=== PATIENT | female | born 1990 | race Hispanic/Latino ===

== ENCOUNTER 2019-12-31 09:37 | Day surgery (SDC) | payer MEDICAID ==
[2019-12-31] MEDS ORDERED: SODIUM CHLORIDE 0.9% 1000 ML 1,000 ML ONE (10:19)
[2019-12-31] MEDS ORDERED: SODIUM CHLORIDE 0.9% 1000 ML 1,000 ML IV SCH (11:15)
[2019-12-31] MEDS ORDERED: LIDOCAINE MPF (2%) 20 MG/1 ML VIAL 5 ML ONE (11:30)
[2019-12-31] MEDS ORDERED: INSULIN REGULAR, HUMAN 100 UNITS/1 ML ONE (11:38)
--- NOTE | 2019-12-31 11:39 | Anesthesia Day of Surgery ---
Anesthesia Day of Surgery - Day of Surgery Patient Examined: Yes Patient H&P Reviewed: Yes Patient is NPO: Yes
[2019-12-31] MEDS ORDERED: propofoL 200 MG/20 ML VIAL IV ONE ×2 (11:40→12:10)
--- NOTE | 2019-12-31 11:41 | Anesthesia Consultation ---
Anesthesia Consult and Med Hx Date of service: 12/31/19 - Airway Anesthetic Teeth Evaluation: Chipped ROM Head & Neck: Adequate Mental/Hyoid Distance: Adequate Mallampati Class: Class II Intubation Access Assessment: Good - Pre-Operative Health Status ASA Pre-Surgery Classification: ASA3 Proposed Anesthetic Plan: MAC - Pulmonary Hx Smoking: Yes Hx Sleep Apnea: No - Cardiovascular System Hx Hypertension: No - Central Nervous System Hx Psychiatric Problems: No - Gastrointestinal Hx Gastroesophageal Reflux Disease: Yes - Endocrine Hx Insulin Dependent Diabetes: Yes (FBS 316. +Neuropathy. Since 12 y/o) - Other Systems Hx Alcohol Use: No Hx Substance Use: No Hx Cancer: No
[2019-12-31] MEDS ORDERED: INSULIN REGULAR, HUMAN 100 UNITS/1 ML SUB-Q SCH (12:00)
--- NOTE | 2019-12-31 12:13 | Procedure Note ---
Date of procedure: 12/31/19 Pre-op diagnosis: Dyspepsia/ Dysphagia Procedure: EGD with Biopsy and s/p Esophageal Balloon dilation (20 mm Balloon) Anesthesia: MAC Surgeon: ORQUIDEA URIARTE Estimated blood loss: minimal Pathology: list Specimen disposition: to lab Condition: stable Disposition: same day (Treat with PPI and Reglan. Avoid aspirin ad NSAID for 4 days; otherwise resume home medication. follow up in 1 to 2 weeks ([phone]).)
--- NOTE | 2019-12-31 12:15 | Operative Report ---
PROCEDURE: Esophagogastroduodenoscopy with biopsy and balloon dilation of the esophagus. INDICATIONS: A 29-year-old white female with an underlying history of juvenile onset diabetes type 1, who has been having some dyspeptic symptoms as well as dysphagia. EGD was done to assess for the problem. The procedure was done after getting informed consent with MAC anesthesia. The procedure was done in the GI lab with assistance of the GI lab team, which included judson So and with assistance of anesthesia. Instrument was passed through the hypopharynx into the esophagus, which showed mild to moderate distal erosive esophagitis. Biopsy was done from the distal esophagus as well as from the mid esophagus to assess for eosinophilic esophagitis as well as the severity of the erosive esophagitis. There was mild benign esophageal stenosis. This was dilated at the end of the procedure with a 20 mm balloon that was maintained for a minute. The stomach showed gastritis. The pylorus was patent. The duodenum in the first and second portion appeared normal. Biopsy was done from the second part to rule out for possible celiac disease since the patient has an underlying history of type 1 diabetes mellitus. Additional biopsy was also done from the gastric antrum, gastric body and angular incisura to rule out for H. pylori and atrophic gastritis. There was evidence of some mild gastroparesis with a patent pylorus. There is minimal bleeding associated with the procedure. No complications associated with the procedure. ASSESSMENT: Dyspepsia, dysphagia, status post esophageal balloon dilation with a 20 mm balloon, rule out eosinophilic esophagitis, mild benign, mild to moderate erosive esophagitis, gastritis, mild gastroparesis, patent pylorus, rule out celiac disease. No peptic ulcer disease noted. PLAN: To have the patient avoid aspirin and aspirin-related products for the next few days. Treat the patient with PPI as well as Reglan and have the patient follow up in the office in 1-2 weeks' time. Further adjustment of the treatment will be according to the biopsy findings. JOB# [id number] MICHAEL/CHRISTIAN
[2019-12-31 12:53] VITALS: BP 119/76
--- NOTE | 2019-12-31 19:25 | Post Anesthesia Evaluation ---
- Post Anesthesia Evaluation Patient Participated: Yes Airway Patent: Yes Stable Respiratory Function: Yes Nausea/Vomiting: No Temp > 96.8F: Yes Pain Manageable: Yes Adequeate Hydration: Yes Anesthesia Complications: No Block Receding Appropriately: Not Applicable Patient on Ventilator: No
== END 2019-12-31 09:38 | disposition home or self-care (01) ==
LOC: GIO 09:37
DX: R13.10 Dysphagia, unspecified (principal); R10.13 Epigastric pain; E10.9 Type 1 diabetes mellitus without complications; K29.70 Gastritis, unspecified, without bleeding; F17.210 Nicotine dependence, cigarettes, uncomplicated; K31.84 Gastroparesis; E78.00 Pure hypercholesterolemia, unspecified; K21.0 Gastro-esophageal reflux disease with esophagitis; Z79.899 Other long term (current) drug therapy; Z90.710 Acquired absence of both cervix and uterus; Z98.890 Other specified postprocedural states; Z80.41 Family history of malignant neoplasm of ovary
CPT/HCPCS: 43239; 43249; 82962; 88305; 88342; C1726; J2704; J7030; J1815

== ENCOUNTER 2020-05-08 07:17 | Day surgery (SDC) | payer MEDICAID ==
[~2020-05-08 07:17] MED LIST: SODIUM CHLORIDE 0.9% 1000 ML 1,000 ML IV SCH
[2020-05-08] MEDS ORDERED: WATER FOR IRRIG STERILE 1,000 ML BOTTLE ONE (08:08)
[2020-05-08] MEDS ORDERED: WATER FOR IRRIG STERILE 250 ML BOTTLE IR ONE (08:08)
--- NOTE | 2020-05-08 08:51 | Anesthesia Consultation ---
Anesthesia Consult and Med Hx Date of service: 05/08/20 - Airway Anesthetic Teeth Evaluation: Good ROM Head & Neck: Adequate Mental/Hyoid Distance: Adequate Mallampati Class: Class III Intubation Access Assessment: Possibly Difficult - Pulmonary Exam CTA: Yes - Cardiac Exam Cardiac Exam: RRR - Pre-Operative Health Status ASA Pre-Surgery Classification: ASA2 Proposed Anesthetic Plan: MAC - Pulmonary Hx Smoking: Yes Hx Respiratory Symptoms: No Hx Sleep Apnea: No - Cardiovascular System Hx Hypertension: No Hx Heart Attack/AMI: No Hx Percutaneous Transluminal Coronary Angioplasty (PTCA): No Hx Cardia Arrhythmia: No - Central Nervous System CVA: No Hx Psychiatric Problems: No - Gastrointestinal Hx Gastroesophageal Reflux Disease: Yes (controlled with protonix) - Endocrine Hx Renal Disease: No Hx Liver Disease: No Hx Insulin Dependent Diabetes: Yes (took 2 units insulin for glucose 230 this morning) Hx Thyroid Disease: No - Other Systems Hx Obesity: No - Additional Comments Anesthesia Medical History Comments: No hx anesthetic complications. Colonoscopy for constipation.
--- NOTE | 2020-05-08 08:51 | Anesthesia Day of Surgery ---
Anesthesia Day of Surgery - Day of Surgery Patient Examined: Yes Patient H&P Reviewed: Yes Patient is NPO: Yes
[2020-05-08] MEDS ORDERED: LIDOCAINE MPF (2%) 20 MG/1 ML VIAL 5 ML ONE (09:04)
[2020-05-08] MEDS ORDERED: propofoL 200 MG/20 ML VIAL IV ONE ×3 (09:04→09:27)
[2020-05-08] MEDS ORDERED: PHENYLEPHRINE/NS 1,000 MCG/10 ML SYRINGE (OR USE) IV ONE (09:37)
--- NOTE | 2020-05-08 09:57 | Procedure Note ---
Date of procedure: 05/08/20 Pre-op diagnosis: Abdominal Pain/Colitis Post-op diagnosis: other (R/O Microscopic Colitis/ Proximal,Transverse Colon Solitary Polyp/ Mild to Moderate Internal Hemorrhoids) Procedure: Colonoscopy with Hot,Snare Polypectomy and Cold biopsy Anesthesia: MAC Surgeon: ORQUIDEA URIARTE Estimated blood loss: minimal Pathology: list Specimen disposition: to lab Condition: stable Disposition: same day (Avoid aspirin and NSAID for 5 days; othrwise resume home mediction. Encourage use of OTC anti-hemorrhoidal medication. And follow up in 1 to 2 weeks ([phone]).)
[2020-05-08 10:49] VITALS: BP 113/67
--- NOTE | 2020-05-08 10:59 | Post Anesthesia Evaluation ---
- Post Anesthesia Evaluation Patient Participated: Yes Airway Patent: Yes Stable Respiratory Function: Yes Nausea/Vomiting: No Temp > 96.8F: Yes Pain Manageable: Yes Adequeate Hydration: Yes Anesthesia Complications: No
--- NOTE | 2020-05-08 13:15 | Operative Report ---
PROCEDURE: Colonoscopy with cold biopsy and hot snare polypectomy. INDICATIONS: This is a 29-year-old white female with an underlying history of juvenile onset diabetes and a history of diabetic gastroparesis. Lately, she has been complaining of abdominal pain. Colonoscopy was done to rule out for possible microscopic colitis because of the association of microscopic colitis with juvenile onset diabetes. DESCRIPTION OF PROCEDURE: The procedure was done after getting informed consent with MAC anesthesia. Initial rectal exam was unremarkable. Instrument was passed through the rectum onto the cecum, which was visualized by the ileocecal valve and the appendiceal orifice. Visualization was fair to slightly poor. The mucosa was washed with copious amounts of water. The terminal ileum could not be intubated, but it appeared on brief glance to show normal mucosa. The cecum, ascending colon showed normal mucosa. In the proximal transverse colon, there was a 10 mm sessile polyp that was removed by hot snare polypectomy and retrieved with minimal bleeding. Biopsies were also randomly done throughout the colon from the cecum, ascending colon and the transverse colon and in the descending colon to rule out for microscopic colitis. Other than for the polyp in the proximal colon, the remaining portion of the transverse colon, descending colon and sigmoid showed normal mucosa and the rectum showed [id number] internal hemorrhoid on the retroverted view. ASSESSMENT: Abdominal pain, colitis, rule out microscopic colitis. No endoscopic evidence of colitis was noted. A solitary proximal colon, transverse colon polyp that was removed by snare polypectomy. [id number] internal hemorrhoid. PLAN: Encouraged the patient to take aszr-[id number]-iijcifl hemorrhoidal medication, avoid aspirin and aspirin-related products over the next few days. Otherwise, resume home medication. Follow up in the office in 1-2 weeks' time. Further treatment adjustment will be according to the biopsy findings. Procedure was done in the GI lab with the assistance of the GI lab team, which included GLENNA, Tiffany Pérez, judson Martínez, and with the assistance of anesthesia. JOB# [id number] MICHAEL/CHRISTAIN
== END 2020-05-08 07:18 | disposition home or self-care (01) ==
LOC: GIO 07:17
DX: R19.4 Change in bowel habit (principal); R10.9 Unspecified abdominal pain; K63.5 Polyp of colon; K63.89 Other specified diseases of intestine; K52.89 Other specified noninfective gastroenteritis and colitis; E10.9 Type 1 diabetes mellitus without complications; F17.210 Nicotine dependence, cigarettes, uncomplicated; E78.00 Pure hypercholesterolemia, unspecified; K21.9 Gastro-esophageal reflux disease without esophagitis; Z79.899 Other long term (current) drug therapy; Z90.710 Acquired absence of both cervix and uterus; Z98.890 Other specified postprocedural states; Z80.41 Family history of malignant neoplasm of ovary
CPT/HCPCS: 45380; 45385; 82962; 88305; J2370; J2704; J7030

== ENCOUNTER 2021-09-17 07:06 | Day surgery (SDC) | payer MEDICAID ==
--- NOTE | 2021-09-17 08:43 | Anesthesia Consultation ---
Anesthesia Consult and Med Hx Date of service: 09/17/21 - Airway Anesthetic Teeth Evaluation: Good ROM Head & Neck: Adequate Mental/Hyoid Distance: Adequate Mallampati Class: Class III Intubation Access Assessment: Probably Good - Pre-Operative Health Status ASA Pre-Surgery Classification: ASA3 Proposed Anesthetic Plan: MAC - Pulmonary Hx Smoking: Yes Hx Respiratory Symptoms: No Hx Sleep Apnea: No - Cardiovascular System Hx Hypertension: No Hx Heart Attack/AMI: No Hx Percutaneous Transluminal Coronary Angioplasty (PTCA): No Hx Cardia Arrhythmia: No - Central Nervous System Hx Neuromuscular Disorder: Yes (Diabetic neuropathy) CVA: No Hx Psychiatric Problems: No - Gastrointestinal Hx Gastroesophageal Reflux Disease: Yes (controlled with protonix) - Endocrine Hx Renal Disease: No Hx Liver Disease: No Hx Insulin Dependent Diabetes: Yes (FBS 176) Hx Thyroid Disease: No - Other Systems Hx Alcohol Use: No Hx Substance Use: No Hx Cancer: No Hx Obesity: No - Additional Comments Anesthesia Medical History Comments: here [phone]
--- NOTE | 2021-09-17 08:43 | Anesthesia Day of Surgery ---
Anesthesia Day of Surgery - Day of Surgery Patient Examined: Yes Patient H&P Reviewed: Yes Patient is NPO: Yes
[2021-09-17] MEDS ORDERED: propofoL 200 MG/20 ML VIAL IV ONE (08:53)
[2021-09-17] MEDS ORDERED: LIDOCAINE MPF (2%) 20 MG/1 ML VIAL 5 ML ONE (08:53)
--- NOTE | 2021-09-17 09:26 | Procedure Note ---
Date of procedure: 09/17/21 Pre-op diagnosis: H/O Diabetic Gastroparesis/ Epigastric Pain/ R/O Peptic,Ulcer disease Post-op diagnosis: other (Mild to Moderate Erosive Esophagitis/ R/O Eosinophilic Esiophagitis/ Gastritis/Diabetic Gastroparesis/ R/O Celiac disease/ no Peptic Ulcer disease noted/ No Gastric Outlet Obstruction noted) Procedure: EGD with Biopsy [place] [facility] [place]: ORQUIDEA URIARTE Estimated blood loss: minimal Pathology: list Specimen disposition: to lab Condition: stable Disposition: same day (Treat with Reglan and PPI and enourage Probiotic use. Avoid aspirin and NSAID for 5 days; otherwise resume home medication and F/U in 1 to 2 weeks ([phone]).)
--- NOTE | 2021-09-17 09:44 | Operative Report ---
DATE OF SURGERY: 09/17/2021 PROCEDURE PERFORMED: EGD with biopsy. INDICATIONS: This is a 30-year-old white female with an underlying history of juvenile onset diabetes mellitus and diabetic gastroparesis. She has been having persistent nausea and vomiting. EGD was done to assess for any significant upper GI pathology. She also had been having some epigastric pain and possible associated peptic ulcer disease. DESCRIPTION OF PROCEDURE: Procedure was done after getting informed consent with MAC anesthesia. Instrument was passed through the hypopharynx into the esophagus, which showed [id number] distal erosive esophagitis. Photodocumentation and biopsy was done from the distal esophagus to assess for the severity of the erosive esophagitis. Biopsy was also done from the mid esophagus to assess for possible eosinophilic esophagitis. There was minimal bleeding from the biopsy site. The stomach showed gastritis. No ulcers were noted in the straight or the retroverted view. Biopsy was done from the gastric antrum, gastric body and angular incisura to rule out for H. pylori and atrophic gastritis. Pylorus was patent. There was no evidence of any gastric outlet obstruction and no peptic ulcer disease was noted within the gastric or the duodenal lumen. The duodenum appeared normal in the first and the second portion. Biopsy was done from the second part to rule out for possible celiac disease because of her underlying history of juvenile onset diabetes mellitus. ASSESSMENT: Nausea, vomiting, diabetic gastroparesis, [id number] erosive esophagitis, rule out eosinophilic esophagitis, gastritis, rule out celiac disease. No gastric outlet obstruction noted. No peptic ulcer disease noted. PLAN: To treat the patient with PPI and Reglan. Encourage the patient to take probiotics. Have the patient to avoid aspirin and aspirin-related products for the next few days and follow up in the office in 1-2 weeks' time. Procedure was done in the GI lab with assistance of the GI lab team, which included the GI nurse, the technical document writer and with assistance of Anesthesia. TID: [id number] RECEIPT: [id number] MICHAEL/YANA
[2021-09-17 10:22] VITALS: BP 125/80
== END 2021-09-17 10:15 | disposition home or self-care (01) ==
LOC: GIO 07:06
DX: R11.2 Nausea with vomiting, unspecified (principal); R10.13 Epigastric pain; K27.9 Peptic ulcer, site unspecified, unspecified as acute or chronic, without hemorrhage or perforation; E11.43 Type 2 diabetes mellitus with diabetic autonomic (poly)neuropathy; K31.84 Gastroparesis; K29.50 Unspecified chronic gastritis without bleeding; K31.89 Other diseases of stomach and duodenum; F17.210 Nicotine dependence, cigarettes, uncomplicated; E78.00 Pure hypercholesterolemia, unspecified; K21.00 Gastro-esophageal reflux disease with esophagitis, without bleeding; Z90.710 Acquired absence of both cervix and uterus; Z86.010 Personal history of colon polyps; Z79.899 Other long term (current) drug therapy; Z80.41 Family history of malignant neoplasm of ovary
CPT/HCPCS: 43239; 82962; 88305; 88342; J2704; J3490; J7030; J7120; Q0162